=== PATIENT | female | born 1945 | race Caucasian/White ===

== ENCOUNTER 2016-09-12 16:57 | Emergency (ER) | payer OTHER, MEDICARE ==
[~2016-09-12] VITALS: Ht 162.6 cm; Wt 73.5 kg
[~2016-09-12 16:57] MED LIST: ATIVAN0.5 MG PO
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
[2016-09-12 19:06] LABS: ABSOLUTE BASOPHIL COUNT 0 /CUMM (0.0-0.2); ABSOLUTE EOSINOPHIL COUNT 0.1 /CUMM (0.0-0.7); ABSOLUTE GRANULOCYTE CT 3.8 /CUMM (1.4-6.5); ABSOLUTE LYMPH COUNT 1.9 /CUMM (1.2-3.4); ABSOLUTE MONOCYTE COUNT 0.4 /CUMM (0.10-0.60); BASOPHIL % 0.5 % (0.0-2.0); EOSINOPHIL % 1.9 % (0-5); GRANULOCYTE % 61.2 % (42.2-75.2); HEMATOCRIT 37.6 % (37-47); MEAN CORPUSCULAR HGB 28.7 PG (27.0-31.0); MEAN CORPUSCULAR HGB CONC 34.5 G/DL (33.0-37.0); MEAN CORPUSCULAR VOLUME 83.3 FL (81.0-99.0); MEAN PLATELET VOLUME 8.5 FL (7.4-10.4); PLATELET COUNT 250 /CUMM (130-400); RBC DISTRIBUTION WIDTH 13.1 % (11.5-14.5); RED BLOOD CELL CT 4.52 /CUMM (4.20-5.40); WHITE BLOOD CELL COUNT 6.3 /CUMM (4.8-10.8)
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
[2016-09-12] MEDS ORDERED: DIOVAN HCT 1601 EACH PO (23:43)
[2016-09-12] MEDS ORDERED: NORVASC5 M1 PO (23:44)
[2016-09-13 10:22] VITALS: BP 135/70
== END 2016-09-13 10:31 ==
LOC: ERH 16:57
PROVIDERS: Physician Assistant
DX: F41.9 Anxiety disorder, unspecified (principal); I10 Essential (primary) hypertension; E78.5 Hyperlipidemia, unspecified; Z79.899 Other long term (current) drug therapy
CPT/HCPCS: 80307; G0463; G0480